=== PATIENT | male | born 1955 | race Caucasian/White ===

== ENCOUNTER 2017-09-01 06:40 | Inpatient (IN) | payer OTHER, MEDICARE ==
[~2017-09-01] VITALS: Ht 175.3 cm; Wt 105.7 kg
[2017-09-01] VITALS (9 sets, daily range): BP systolic 131–191; BP diastolic 69–94; PULSE 76–113; RESP 18–24; TEMP 97.6–98.6; O2SAT 92–95
[~2017-09-01 06:40] MED LIST: ATEN1TAB73 PO; FENO50TA PO; NEXI40CA PO; PERC10TA27 PO; ROSU5 PO; TRAZ50TA78 PO
[2017-09-01 07:03] LABS: BASOPHIL # 0.1 TH/MM3 (0-0.2); BASOPHIL % 0.3 % (0.0-2.0); EOSINOPHIL % 0.1 % (0.0-4.0); HEMATOCRIT 45.7 % (39.0-51.0); HEMOGLOBIN 15.4 GM/DL (13.0-17.0); LYMPH % 5.4 % (9.0-44.0); LYMPHOCYTE # 1.3 TH/MM3 (1.0-4.8); MEAN CELL VOLUME 92.8 FL (80.0-100.0); MEAN CORPUSCULAR HEMOGLOBIN 31.2 PG (27.0-34.0); MEAN CORPUSCULAR HGB CONC 33.6 % (32.0-36.0); MEAN PLATELET VOLUME 8.7 FL (7.0-11.0); MONO % 1.5 % (0.0-8.0); MONOCYTE # 0.4 TH/MM3 (0-0.9); NEUT % 92.7 % (16.0-70.0); PLATELET COUNT 266 TH/MM3 (150-450); RED BLOOD COUNT 4.93 MIL/MM3 (4.50-5.90); RED CELL DISTRIBUTION WIDTH 12.7 % (11.6-17.2); WHITE BLOOD COUNT 24.8 TH/MM3 (4.0-11.0)
[2017-09-01] MEDS ORDERED: ALPR.5 PO (07:10)
[2017-09-01] MEDS ORDERED: BUME1TAB PO (07:10)
[2017-09-01] MEDS ORDERED: METO1TAB9 PO (07:10)
[2017-09-01] MEDS ORDERED: PRIM50TA5 PO (07:10)
[2017-09-01] MEDS ORDERED: METO1TAB43 PO (07:10)
[2017-09-01] MEDS ORDERED: POTA10TA2 PO (07:10)
[2017-09-01] MEDS ORDERED: NEXI20CA PO (07:10)
[2017-09-01] MEDS ORDERED: OXYC1TAB36 PO (07:10)
[2017-09-01] MEDS ORDERED: FENO54TA PO (07:10)
[2017-09-01] MEDS ORDERED: SIMV40TA PO (07:10)
[2017-09-01] MEDS ORDERED: BENA40TA PO (07:10)
[2017-09-01] MEDS ORDERED: FORM20NE INH (07:10)
[2017-09-01 07:14] LABS: CHLORIDE 99 MEQ/L (98-107); SODIUM (NA) 133 MEQ/L (136-145)
[2017-09-01 07:17] LABS: ALBUMIN 4.6 GM/DL (3.4-5.0); BICARBONATE 21.3 MEQ/L (21.0-32.0); CALCIUM 9.8 MG/DL (8.5-10.1); GLUCOSE,RANDOM 186 MG/DL (74-106)
[2017-09-01 07:18] LABS: BLOOD UREA NITROGEN 39 MG/DL (7-18)
[2017-09-01 07:20] LABS: ALT (GPT) 34 U/L (12-78); AST (GOT) 19 U/L (15-37); GLOMERULAR FILTRATION RATE 36 ML/MIN (>89)
[2017-09-01 07:22] LABS: TOTAL BILIRUBIN ADULT 0.6 MG/DL (0.2-1.0); TOTAL PROTEIN 9.1 GM/DL (6.4-8.2)
--- NOTE | 2017-09-01 07:22 | EKG ---
Date Performed: 09/01/2017 Time Performed: 06:47:34 PTAGE: 62 years EKG: SINUS TACHYCARDIA MODERATE ST DEPRESSION ABNORMAL ECG INTERPRETATION BASED ON A DEFAULT AGE OF 40 YEARS NO PREVIOUS TRACING DOCTOR: Cory Hwang Interpretating Date/Time 09/01/2017 07:20:37
[2017-09-01 07:23] LABS: ALKALINE PHOSPHATASE 52 U/L (45-117)
[2017-09-01] MEDS ORDERED: PROCHLORPERAZINE INJ 10 MG/2 ML VIAL IV PUSH ONE (07:30)
[2017-09-01] MEDS ORDERED: diphenhydrAMINE HCL 50 MG/ML VIAL IV PUSH ONE (07:30)
[2017-09-01] MEDS ORDERED: MORPHINE SULFATE 4 MG/ML INJ IV ONE (07:30)
--- NOTE | 2017-09-01 07:43 | RADRPT ---
EXAM DATE: 09/01/2017 7:30 AM EDT AGE/SEX: 62 years / Male INDICATIONS: Diffuse abdominal pain. CLINICAL DATA: This is the patient's initial encounter. Patient reports that signs and symptoms have been present for 1 day and indicates a pain score of 10/10. MEDICAL/SURGICAL HISTORY: Aneurysm, abdominal. Hypertension. Umbilical hernia repair. Abdomin al aortic aneurysm repair. RADIATION DOSE: 23.06 CTDI (mGy) ; Patient body habitus COMPARISON: No prior exams available for comparison. TECHNIQUE: Multiple contiguous axial images were obtained through the abdomen. Images were obtained using multiple row detector helical technique. Using dose reduction techniques, radiation dose was ke pt as low as reasonably achievable to obtain optimal diagnostic quality images. FINDINGS: Minimal fissural thickening present on the right. Lungs bases are otherwise clear. Liver is free of focal defects. Gallbladder prominent Spleen and pancreas appear normal Adrenals are unremarkable Small atrophic right kidney Normal size left kidney Aortic endograft evident. Previous abdominal hernia surgery And no inflammatory changes or ascites in the abdomen The pelvis there are diverticuli sigmoid colon with minimal inflammatory changes in the right lower q uadrant could be early diverticulitis Excessive vascular calcic locations are noted in the iliac vessels Bladder and prostate are unremarkable , Quinones intact Review of bone windows reveals only degenerative changes. CONCLUSION: 1. Previous aortic repair with small right kidney 2. Minimal inflammatory changes associated with mild diverticular disease level iliac crests left th at could be early diverticulitis 3. No other etiology for diffuse abdominal pain is evident 4. There is no free air. Electronically signed by: Santiago Ingram MD 09/01/2017 7:42 AM EDT
[2017-09-01] MEDS ORDERED: MORPHINE SULFATE 2 MG/ML SYRINGE IV PUSH ONE (08:00)
--- NOTE | 2017-09-01 08:13 | PD ---
HPI . Abdominal pain Chief Complaint: Abdominal Pain Time Seen by Provider: 07:03 Travel History International Travel<30 days: No Contact w/Intl Traveler<30days: No Traveled to known affect area: No History of Present Illness HPI This patient presents with a chief complaint of abdominal pain. Onset was yesterday. The pain is located on the left side of his abdomen and is described as constant and sharp. Pain is rated 8/10. Pain is exacerbated by palpation. He has not noted any relieving factors. His pain is associated with a poor appetite and nausea but no vomiting or diarrhea. No urinary tract symptoms. No previous similar history. PFSH Past Medical History AAA: Yes Arthritis: Yes Anxiety: Yes High Cholesterol: Yes COPD: Yes Coronary Artery Disease: Yes Diminished Hearing: No GERD: Yes Hypertension: Yes Triglycerides - High: Yes Tetanus Vaccination: < 5 Years Influenza Vaccination: Yes Past Surgical History Abdominal Surgery: Yes (AAA REPAIR/STENT, HERNIA REPAIR) Social History Alcohol Use: No Tobacco Use: No Substance Use: No Allergies-Medications (Allergen,Severity, Reaction): Coded Allergies: penicillin G (Unverified Allergy, Severe, Rash, 09/01/17) Reported Meds & Prescriptions Reported Meds & Active Scripts Active Reported Perforomist Neb (Formoterol Fumarate) 20 Mcg/2 Ml Neb 1 Nebule INH BID Oxycodone-Acetaminophen 10-325 mg Tab 1 Tab PO Q4H PRN Xanax (Alprazolam) 0.5 Mg Tab 0.5 Mg PO Q4H PRN Primidone 50 Mg Tab 50 Mg PO BID Nexium (Esomeprazole DR) 20 Mg Capdr 20 Mg PO DAILY Simvastatin 40 Mg Tab 40 Mg PO HS Bumetanide 1 Mg Tab 1 Mg PO BID Benazepril (Benazepril HCl) 40 Mg Tab 40 Mg PO BID Fenofibrate 54 Mg Tab 54 Mg PO DAILY Potassium Chloride ER (Potassium Chloride) 10 Meq Tab 10 Meq PO BID Metoprolol Succinate ER 24 HR (Metoprolol Succinate) 50 Mg Tab 50 Mg PO DAILY Metoprolol Succinate ER 24 HR (Metoprolol Succinate) 100 Mg Tab 100 Mg PO DAILY Review of Systems Except as stated in HPI: all other systems reviewed are Neg Physical Exam Narrative GENERAL: Awake and alert and in no acute distress. SKIN: warm/dry. Normal color and turgor. HEAD: Normocephalic. Atraumatic. EYES: Pupils equal and round. Extraocular movements are intact. ENT: Mucous membranes pink and moist. NECK: Supple. Full range of motion without pain.. CARDIOVASCULAR: Regular rate and rhythm. Heart sounds are normal. RESPIRATORY: No accessory muscle use. Clear to auscultation. Breath sounds equal bilaterally. GASTROINTESTINAL: Abdomen is exquisitely tender to light palpation. Bowel sounds are present. MUSCULOSKELETAL: No obvious deformities. Normal muscle tone. NEUROLOGICAL: Awake and alert. No obvious cranial nerve deficits. Motor grossly within normal limits. Normal speech. PSYCHIATRIC: Appropriate mood and affect; insight and judgment normal. Data Data Last Documented VS Vital Signs Date Time Temp Pulse Resp B/P (MAP) Pulse Ox O2 Delivery O2 Flow Rate FiO2 09/01/17 09:40 93 18 135/69 (91) 93 Room Air 09/01/17 06:44 98.3 Orders Orders Electrocardiogram (09/01/17 ) Complete Blood Count With Diff (09/01/17 06:43) Comprehensive Metabolic Panel (09/01/17 06:43) Iv Access Insert/Monitor (09/01/17 06:43) Oxygen Administration (09/01/17 06:43) Oximetry (09/01/17 06:43) Lipase (09/01/17 06:43) Ct Abd/Pel W/O Iv Contrast (09/01/17 07:02) Diphenhydramine Inj (Benadryl Inj) (09/01/17 07:30) Prochlorperazine Inj (Compazine Inj) (09/01/17 07:30) Morphine Inj (Morphine Inj) (09/01/17 07:30) Morphine Inj (Morphine Inj) (09/01/17 08:00) Lactic Acid Sepsis Protocol (09/01/17 08:15) Sodium Chlor 0.9% 1000 Ml Inj (Ns 1000 M (09/01/17 09:45) Sodium Chlor 0.9% 1000 Ml Inj (Ns 1000 M (09/01/17 09:45) Labs Laboratory Tests Test 09/01/17 07:00 09/01/17 08:30 White Blood Count 24.8 TH/MM3 Red Blood Count 4.93 MIL/MM3 Hemoglobin 15.4 GM/DL Hematocrit 45.7 % Mean Corpuscular Volume 92.8 FL Mean Corpuscular Hemoglobin 31.2 PG Mean Corpuscular Hemoglobin Concent 33.6 % Red Cell Distribution Width 12.7 % Platelet Count 266 TH/MM3 Mean Platelet Volume 8.7 FL Neutrophils (%) (Auto) 92.7 % Lymphocytes (%) (Auto) 5.4 % Monocytes (%) (Auto) 1.5 % Eosinophils (%) (Auto) 0.1 % Basophils (%) (Auto) 0.3 % Neutrophils # (Auto) 23.0 TH/MM3 Lymphocytes # (Auto) 1.3 TH/MM3 Monocytes # (Auto) 0.4 TH/MM3 Eosinophils # (Auto) 0.0 TH/MM3 Basophils # (Auto) 0.1 TH/MM3 CBC Comment AUTO DIFF Differential Comment AUTO DIFF CONFIRMED Platelet Estimate NORMAL Platelet Morphology Comment NORMAL Blood Urea Nitrogen 39 MG/DL Creatinine 1.90 MG/DL Random Glucose 186 MG/DL Total Protein 9.1 GM/DL Albumin 4.6 GM/DL Calcium Level 9.8 MG/DL Alkaline Phosphatase 52 U/L Aspartate Amino Transf (AST/SGOT) 19 U/L Alanine Aminotransferase (ALT/SGPT) 34 U/L Total Bilirubin 0.6 MG/DL Sodium Level 133 MEQ/L Potassium Level 4.0 MEQ/L Chloride Level 99 MEQ/L Carbon Dioxide Level 21.3 MEQ/L Anion Gap 13 MEQ/L Estimat Glomerular Filtration Rate 36 ML/MIN Lipase 81 U/L Lactic Acid Level 3.3 mmol/L MDM Medical Decision Making Medical Screen Exam Complete: Yes Emergency Medical Condition: Yes Differential Diagnosis Differential diagnosis of abdominal pain includes but is not limited to gastritis, pancreatitis, hepatitis, gastroenteritis, constipation, urinary retention, peptic ulcer disease, diverticulitis or appendicitis Narrative Course This patient presents with a chief complaint of left-sided abdominal pain. He is very tender on abdominal exam. Last Impressions Abdomen/Pelvis CT 09/01/17 0702 Signed Impressions: CONCLUSION: 1. Previous aortic repair with small right kidney 2. Minimal inflammatory changes associated with mild diverticular disease leve l iliac crests left that could be early diverticulitis 3. No other etiology for diffuse abdominal pain is evident 4. There is no free air. The patient's pain has been treated with morphine. He will be given a dose of Zosyn for diverticulitis. CBC & BMP Diagram 09/01/17 07:00 Total Protein 9.1 H, Albumin 4.6, Calcium Level 9.8, Alkaline Phosphatase 52, Aspartate Amino Transf (AST/SGOT) 19, Alanine Aminotransferase (ALT/SGPT) 34, Total Bilirubin 0.6 LA 3.3. I have ordered 2 L of fluid. He will need to be admitted to the hospital for IV fluids and IV antibiotics. Sepsis Criteria SIRS Criteria (2 or more): Heart rate over 90, RR > 20 or PaCO2 < 32, WBC > 27901, < 4000 or > 10% bands Sepsis Criteria (SIRS+source): Infect source susp/known Severe Sepsis (+one): Lactate >2 Criteria Outcome: Meets SIRS criteria, Meets sepsis criteria Physician Communication Physician Communication Dr. Britt Diagnosis Primary Impression: Abdominal pain Qualified Codes: R10.32 - Left lower quadrant pain Additional Impressions: Diverticulitis large intestine Qualified Codes: K57.32 - Diverticulitis of large intestine without perforation or abscess without bleeding Severe sepsis Admitting Information Admitting Physician Requests: Admit Condition: Stable Charo Blackburn MD Sep 01, 2017 08:13
[2017-09-01 08:56] LABS: LACTIC ACID SEPSIS PROTOCOL 3.3 mmol/L (0.4-2.0)
[2017-09-01] MEDS ORDERED: SODIUM CHLOR 0.9% 1000 ML INJ 1,000 ML IV ONE ×2 (09:45)
[2017-09-01] MEDS ORDERED: NALOXONE HCL 0.4 MG/ML AMP IV PUSH PRN (10:00)
[2017-09-01] MEDS ORDERED: ACETAMINOPHEN 325 MG TAB PO PRN (10:00)
[2017-09-01] MEDS ORDERED: SENNOSIDES 8.6 MG TAB PO PRN (10:00)
[2017-09-01] MEDS ORDERED: SODIUM CHLORIDE 0.9% FLUSH 10 ML FLUSH IV FLUSH PRN (10:00)
[2017-09-01] MEDS ORDERED: MAGNESIUM HYDROXIDE SUSP 30 ML CUP PO PRN (10:00)
[2017-09-01] MEDS ORDERED: LACTULOSE SYRUP 20 GM/30 ML CUP PO PRN (10:00)
[2017-09-01] MEDS ORDERED: BISACODYL 10 MG SUPP RECTAL PRN (10:00)
[2017-09-01] MEDS: CIPROFLOXACIN 400 MG PREMIX 200 ML IV SCH (10:47)
[2017-09-01] MEDS: metroNIDAZOLE 500 MG INJ 100 ML IV SCH ×2 (12:00→21:03)
[2017-09-01] MEDS: SODIUM CHLOR 0.9% 1000 ML INJ 1,000 ML IV SCH ×2 (12:00→21:13)
[2017-09-01] MEDS: ACETAMINOPHEN/HYDROcodone 325 MG/5 MG TAB PO PRN ×2 (13:39→21:06)
[2017-09-01] MEDS: MORPHINE SULFATE 4 MG/ML INJ IV PUSH PRN ×2 (16:02→20:02)
--- NOTE | 2017-09-01 16:44 | HHI.HP ---
[facility] Kristal Barrera MD Admission Diagnosis diverticulitis Diagnoses: Chief Complaint: Abdominal pain Travel History International Travel<30 Days: No Contact w/Intl Traveler <30 Da: No Traveled to Known Affected Are: No Sepsis Criteria SIRS Criteria (2 or more): Heart rate over 90, WBC > 41090, < 4000 or > 10% bands Sepsis Criteria (SIRS+source): Infect source susp/known Criteria Outcome: Meets SIRS criteria, Meets sepsis criteria History of Present Illness Mr. Uriarte is a pleasant 62-year-old male with history of AAA repair, COPD, GERD , hypertension who presents to the emergency department on 09/01/2017 due to significant abdominal pain, diaphoresis that started yesterday morning. His pain initially was in the lower quadrants but now concentrated in the left lower quadrant. He rates his pain 8 out of 10. He reports poor appetite and nausea. No chest pain, shortness of breath, fever or chills. No changes in bowel or bladder habits. He denies any hematuria, hematochezia. Last colonoscopy was almost 2 years ago. Review of Systems Except as stated in HPI: all other systems reviewed are Neg Past Family Social History Past Medical History AAA, arthritis, anxiety, hyperlipidemia, COPD, CAD, GERD, hypertension. Past Surgical History AAA repair hernia repair Reported Medications Perforomist Neb (Formoterol Fumarate) 20 Mcg/2 Ml Neb 1 Nebule INH BID Oxycodone-Acetaminophen 10-325 mg Tab 1 Tab PO Q4H PRN Xanax (Alprazolam) 0.5 Mg Tab 0.5 Mg PO Q4H PRN Primidone 50 Mg Tab 50 Mg PO BID Nexium (Esomeprazole DR) 20 Mg Capdr 20 Mg PO DAILY Simvastatin 40 Mg Tab 40 Mg PO HS Bumetanide 1 Mg Tab 1 Mg PO BID Benazepril (Benazepril HCl) 40 Mg Tab 40 Mg PO BID Fenofibrate 54 Mg Tab 54 Mg PO DAILY Potassium Chloride ER (Potassium Chloride) 10 Meq Tab 10 Meq PO BID Metoprolol Succinate ER 24 HR (Metoprolol Succinate) 50 Mg Tab 50 Mg PO DAILY Metoprolol Succinate ER 24 HR (Metoprolol Succinate) 100 Mg Tab 100 Mg PO DAILY Allergies: Coded Allergies: penicillin G (Unverified Allergy, Severe, Rash, 09/01/17) Family History No family history of Alzheimer's or Parkinson's. Social History Denies using tobacco, alcohol, illicit drugs. Physical Exam Vital Signs Vital Signs Date Time Temp Pulse Resp B/P (MAP) Pulse Ox O2 Delivery O2 Flow Rate FiO2 09/01/17 15:21 98.2 104 20 131/78 (95) 93 09/01/17 12:05 97.6 113 20 161/77 (105) 94 09/01/17 11:52 09/01/17 11:33 98.1 106 18 150/76 (100) 92 Room Air 09/01/17 10:10 93 21 09/01/17 09:40 93 18 135/69 (91) 93 Room Air 09/01/17 08:16 97 18 157/73 (101) 93 Room Air 09/01/17 07:10 95 Room Air 09/01/17 07:10 95 Room Air 09/01/17 06:44 98.3 106 24 179/94 (122) 93 Physical Exam GENERAL: This is a well-nourished, well-developed patient, in no apparent distress. SKIN: No rashes, ecchymoses or lesions. Warm and dry. HEAD: Atraumatic. Normocephalic. No temporal or scalp tenderness. EYES: Pupils equal round and reactive. No injection or drainage. ENT: Nose without bleeding, purulent drainage or septal hematoma. Airway patent. NECK: Trachea midline. No lymphadenopathy. Supple, nontender, no meningeal signs. CARDIOVASCULAR: Regular rate and rhythm without murmurs, gallops, or rubs. No JVD. RESPIRATORY: Clear to auscultation. Breath sounds equal bilaterally. No wheezes , rales, or rhonchi. GASTROINTESTINAL: Abdomen is somewhat firm and distended, exquisitely tender to palpation especially on the left lower quadrant. MUSCULOSKELETAL: Extremities without clubbing, cyanosis, or edema. NEUROLOGICAL: Awake and alert. Cranial nerves II through XII intact. No focal neurological deficits. Normal speech. Laboratory Laboratory Tests Test 09/01/17 07:00 09/01/17 08:30 09/01/17 11:40 White Blood Count 24.8 Red Blood Count 4.93 Hemoglobin 15.4 Hematocrit 45.7 Mean Corpuscular Volume 92.8 Mean Corpuscular Hemoglobin 31.2 Mean Corpuscular Hemoglobin Concent 33.6 Red Cell Distribution Width 12.7 Platelet Count 266 Mean Platelet Volume 8.7 Neutrophils (%) (Auto) 92.7 Lymphocytes (%) (Auto) 5.4 Monocytes (%) (Auto) 1.5 Eosinophils (%) (Auto) 0.1 Basophils (%) (Auto) 0.3 Neutrophils # (Auto) 23.0 Lymphocytes # (Auto) 1.3 Monocytes # (Auto) 0.4 Eosinophils # (Auto) 0.0 Basophils # (Auto) 0.1 CBC Comment AUTO DIFF Differential Comment AUTO DIFF CONFIRMED Platelet Estimate NORMAL Platelet Morphology Comment NORMAL Blood Urea Nitrogen 39 Creatinine 1.90 Random Glucose 186 Total Protein 9.1 Albumin 4.6 Calcium Level 9.8 Alkaline Phosphatase 52 Aspartate Amino Transf (AST/SGOT) 19 Alanine Aminotransferase (ALT/SGPT) 34 Total Bilirubin 0.6 Sodium Level 133 Potassium Level 4.0 Chloride Level 99 Carbon Dioxide Level 21.3 Anion Gap 13 Estimat Glomerular Filtration Rate 36 Lipase 81 Lactic Acid Level 3.3 2.8 Result Diagram: 09/01/17 0709/01/17699 Imaging Last Impressions Abdomen/Pelvis CT 09/01/17701 Signed Impressions: CONCLUSION: 1. Previous aortic repair with small right kidney 2. Minimal inflammatory changes associated with mild diverticular disease leve l iliac crests left that could be early diverticulitis 3. No other etiology for diffuse abdominal pain is evident 4. There is no free air. Caprini VTE Risk Assessment Caprini VTE Risk Assessment: Mod/High Risk (score >= 2) Caprini Risk Assessment Model Point Value = 1 Point Value = 2 Point Value = 3 Point Value = 5 Age 41-60 Minor surgery BMI > 25 kg/m2 Swollen legs Varicose veins or History of unexplained or recurrent spontaneous Oral contraceptives or hormone replacement Sepsis (< 1 month) Serious lung disease, including pneumonia (< 1 month) Abnormal pulmonary function Acute myocardial infarction Congestive heart failure (< 1 month) History of inflammatory bowel disease Medical patient at bed rest Age 61-74 Arthroscopic surgery Major open surgery (> 45 min) Laparoscopic surgery (> 45 min) Malignancy Confined to bed (> 72 hours) Immobilizing plaster cast Central venous access Age >= 75 History of VTE Family history of VTE Factor V Leiden Prothrombin [id number] Lupus anticoagulant Anticardiolipin antibodies Elevated serum homocysteine Heparin-induced thrombocytopenia Other congenital or acquired thrombophilia Stroke (< 1 month) Elective arthroplasty Hip, pelvis, or leg fracture Acute spinal cord injury (< 1 month) Prophylaxis Regimen Total Risk Factor Score Risk Level Prophylaxis Regimen 0-1 Low Early ambulation 2 Moderate Order ONE of the following: *Sequential Compression Device (SCD) *Heparin 5000 units SQ BID 3-4 Higher Order ONE of the following medications: *Heparin 5000 units SQ TID *Enoxaparin/Lovenox 40 mg SQ daily (WT < 150 kg, CrCl > 30 mL/min) *Enoxaparin/Lovenox 30 mg SQ daily (WT < 150 kg, CrCl > 10-29 mL/min) *Enoxaparin/Lovenox 30 mg SQ BID (WT < 150 kg, CrCl > 30 mL/min) AND/OR *Sequential Compression Device (SCD) 5 or more Highest Order ONE of the following medications: *Heparin 5000 units SQ TID (Preferred with Epidurals) *Enoxaparin/Lovenox 40 mg SQ daily (WT < 150 kg, CrCl > 30 mL/min) *Enoxaparin/Lovenox 30 mg SQ daily (WT < 150 kg, CrCl > 10-29 mL/min) *Enoxaparin/Lovenox 30 mg SQ BID (WT < 150 kg, CrCl > 30 mL/min) AND *Sequential Compression Device (SCD) Assessment and Plan Problem List: (1) Sepsis ICD Code: A41.9 - Sepsis, unspecified organism Status: Acute (2) Diverticulitis large intestine ICD Code: K57.32 - Diverticulitis of large intestine without perforation or abscess without bleeding Status: Acute Assessment and Plan Mr. Uriarte is a pleasant 62-year-old male with a history of AAA repair, hypertension, hyperlipidemia who presents to the emergency department on 2017 due to lower abdominal pain and diaphoresis that started a day before this admission. Acute diverticulitis Sepsis(leukocytosis, heart rate over 100, suspected infection diverticulitis) -Clear liquid diet. -Ciprofloxacin 400 mg every 12 hours and metronidazole IV 500 mg every 8 hours. -Pain management with acetaminophen, [place], morphine IV as needed. COPD -DuoNeb as needed. Probable acute kidney injury -Creatinine 1.90. We do not know his baseline creatinine. We will monitor. -Continue normal saline at 100 cc/h. Hypertension Tachycardia Hyperlipidemia Anxiety - Continue Metoprolol succinate 100 mg daily. Hold off WEI inhibitor and diuretics for now. - Continue Xanax 0.5mg Q4hrs PRN (home dose). Full code. Heparin SQ. Physician Certification 2 Midnight Certification Type: Admission for Inpatient Services Order for Inpatient Services The services are ordered in accordance with Medicare regulations or non- Medicare payer requirements, as applicable. In the case of services not specified as inpatient-only, they are appropriately provided as inpatient services in accordance with the 2-midnight benchmark. Estimated LOS (days): 2 days is the estimated time the patient will need to remain in the hospital, assuming treatment plan goals are met and no additional complications. Post-Hospital Plan: Home Problem Qualifiers (1) Sepsis: Qualified Codes: A41.9 - Sepsis, unspecified organism (2) Diverticulitis large intestine: Qualified Codes: K57.32 - Diverticulitis of large intestine without perforation or abscess without bleeding Enedina Britt DO Sep 01, 2017 4:44 pm
[2017-09-01] MEDS ORDERED: RESP: ALBUTEROL 2.5 MG/IPRATROPIUM 0.5 MG NEB (PRN) NEB (18:15)
[2017-09-01] MEDS ORDERED: ALPRAZolam 0.5 MG TAB PO PRN (18:15)
[2017-09-01] MEDS: SODIUM CHLORIDE 0.9% FLUSH 10 ML FLUSH IV FLUSH SCH (21:00)
[2017-09-01] MEDS: PRAVASTATIN SOD 40 MG TAB PO SCH (21:05)
[2017-09-01] MEDS: PRIMIDONE 50 MG TAB PO SCH (21:05)
[2017-09-01] MEDS: HEPARIN SODIUM - SQ 10,000 UNITS/ML VIAL SQ SCH (21:12)
[2017-09-02] VITALS (9 sets, daily range): BP systolic 132–209; BP diastolic 75–98; PULSE 85–101; RESP 16–22; TEMP 97.1–98.4; O2SAT 93–99
[2017-09-02] MEDS: MORPHINE SULFATE 4 MG/ML INJ IV PUSH PRN ×2 (00:12→03:27)
[2017-09-02] MEDS: CIPROFLOXACIN 400 MG PREMIX 200 ML IV SCH ×2 (00:14→09:57)
[2017-09-02] MEDS: metroNIDAZOLE 500 MG INJ 100 ML IV SCH ×3 (03:28→20:32)
[2017-09-02] MEDS ORDERED: cloNIDine HCL 0.1 MG TAB PO ONE (04:15)
[2017-09-02] MEDS: ACETAMINOPHEN/HYDROcodone 325 MG/5 MG TAB PO PRN ×2 (04:20→06:25)
[2017-09-02 06:27] LABS: AUTOMATED NEUTROPHIL # 11.7 TH/MM3 (1.8-7.7); BASOPHIL # 0.6 TH/MM3 (0-0.2); BASOPHIL % 4.2 % (0.0-2.0); EOSINOPHIL % 0.2 % (0.0-4.0); HEMATOCRIT 37.2 % (39.0-51.0); HEMOGLOBIN 12.6 GM/DL (13.0-17.0); LYMPH % 11.2 % (9.0-44.0); LYMPHOCYTE # 1.7 TH/MM3 (1.0-4.8); MEAN CELL VOLUME 91.4 FL (80.0-100.0); MEAN CORPUSCULAR HGB CONC 33.9 % (32.0-36.0); MEAN PLATELET VOLUME 8.4 FL (7.0-11.0); MONO % 5.6 % (0.0-8.0); MONOCYTE # 0.8 TH/MM3 (0-0.9); NEUT % 78.8 % (16.0-70.0); PLATELET COUNT 194 TH/MM3 (150-450); RED BLOOD COUNT 4.07 MIL/MM3 (4.50-5.90); RED CELL DISTRIBUTION WIDTH 12.6 % (11.6-17.2); WHITE BLOOD COUNT 14.8 TH/MM3 (4.0-11.0)
[2017-09-02 06:48] LABS: BICARBONATE 20.5 MEQ/L (21.0-32.0); CALCIUM 8.5 MG/DL (8.5-10.1); CREATININE 1.2 MG/DL (0.60-1.30)
[2017-09-02] MEDS ORDERED: oxyCODONE/ACETAMINOPHEN 10 MG/325 MG TAB PO PRN (08:15)
--- NOTE | 2017-09-02 08:24 | HHI.PR ---
Subjective Remarks Follow-up for sepsis, diverticulitis. Patient is complaining of persistent abdominal distention and pain. His pain has not improved much. Denies any fever or chills. Has not had any bowel movement. Objective Vitals Vital Signs Date Time Temp Pulse Resp B/P (MAP) Pulse Ox O2 Delivery O2 Flow Rate FiO2 09/02/17 05:20 19 09/02/17 04:00 96 09/02/17 04:00 97.6 92 20 189/98 (128) 95 09/02/17 03:48 97.6 92 20 189/98 (128) 95 09/02/17 03:32 19 09/02/17 00:00 93 09/02/17 00:00 97.1 95 20 188/92 (124) 99 09/01/17 20:00 98.6 76 20 191/88 (122) 93 09/01/17 15:21 98.2 104 20 131/78 (95) 93 09/01/17 12:05 97.6 113 20 161/77 (105) 94 09/01/17 11:52 09/01/17 11:33 98.1 106 18 150/76 (100) 92 Room Air 09/01/17 10:10 93 21 09/01/17 09:40 93 18 135/69 (91) 93 Room Air I/O 09/01/17 09/01/17 09/01/17 09/02/17 09/02/17 09/02/17 07:00 15:00 23:00 07:00 15:00 23:00 Intake Total 2200 ml 420 ml Output Total 800 ml 650 ml Balance 2200 ml -380 ml -650 ml Intake Oral 420 ml IV Total 2200 ml Output Urine Total 800 ml 650 ml # Bowel Movements 0 0 Result Diagram: 09/02/17 0600 09/02/17 0600 Imaging Last Impressions Abdomen/Pelvis CT 09/01/17 0702 Signed Impressions: CONCLUSION: 1. Previous aortic repair with small right kidney 2. Minimal inflammatory changes associated with mild diverticular disease leve l iliac crests left that could be early diverticulitis 3. No other etiology for diffuse abdominal pain is evident 4. There is no free air. Objective Remarks GENERAL: Alert, oriented 3, NAD. Appears to be in mild discomfort due to pain. SKIN: Warm and dry. HEAD: Normocephalic. EYES: No scleral icterus. No injection or drainage. NECK: Supple, trachea midline. No JVD or lymphadenopathy. CARDIOVASCULAR: Regular rate and rhythm without murmurs, gallops, or rubs. RESPIRATORY: Breath sounds equal bilaterally. No accessory muscle use. GASTROINTESTINAL: Abdomen somewhat firm, exquisitely tender to palpation. MUSCULOSKELETAL: No cyanosis, or edema. BACK: Nontender without obvious deformity. No CVA tenderness. Procedures None A/P Problem List: (1) Sepsis ICD Code: A41.9 - Sepsis, unspecified organism Status: Acute (2) Diverticulitis large intestine ICD Code: K57.32 - Diverticulitis of large intestine without perforation or abscess without bleeding Status: Acute Assessment and Plan Mr. Uriarte is a pleasant 62-year-old male with a history of AAA repair, hypertension, hyperlipidemia who presents to the emergency department on 2017 due to lower abdominal pain and diaphoresis that started a day before this admission. Acute diverticulitis Sepsis(leukocytosis, heart rate over 100, suspected infection diverticulitis) -Currently afebrile, leukocytosis improved 24.8 --> 14.8. -Clear liquid diet. -Ciprofloxacin 400 mg every 12 hours and metronidazole IV 500 mg every 8 hours. -Pain management with acetaminophen. Change pain medication to Percocet and Dilaudid as needed. -Due to persistent symptoms (pain, distention), will obtain KUB this morning as well as a colorectal surgery consultation. COPD -DuoNeb as needed. Probable acute kidney injury -Creatinine 1.90 --> 1.20 . We do not know his baseline creatinine. We will monitor. -Continue normal saline at 100 cc/h. Hypertension Tachycardia Hyperlipidemia Anxiety - BP was high this AM likely due to pain. - Patient takes WEI inhibitor. Will start patient on captopril 25 mg twice daily. - Continue Metoprolol succinate 100 mg daily. - Continue Xanax 0.5mg Q4hrs PRN (home dose). Full code. Heparin SQ. Problem Qualifiers (1) Sepsis: Qualified Codes: A41.9 - Sepsis, unspecified organism (2) Diverticulitis large intestine: Qualified Codes: K57.32 - Diverticulitis of large intestine without perforation or abscess without bleeding Enedina Britt DO Sep 02, 2017 08:24
[2017-09-02] MEDS ORDERED: HYDROmorphone HCL PF 2 MG/ML VIAL IV PUSH ONE (08:30)
[2017-09-02] MEDS: PANTOPRAZOLE SOD 20 MG DELAYED RELEASE TAB PO SCH (08:36)
[2017-09-02] MEDS: HEPARIN SODIUM - SQ 10,000 UNITS/ML VIAL SQ SCH ×2 (08:36→20:31)
[2017-09-02] MEDS: METOPROLOL SUCCINATE 50 MG EXTENDED RELEASE TAB PO SCH (08:36)
[2017-09-02] MEDS: PRIMIDONE 50 MG TAB PO SCH ×2 (08:36→20:31)
[2017-09-02] MEDS: SODIUM CHLORIDE 0.9% FLUSH 10 ML FLUSH IV FLUSH SCH ×2 (08:39→20:32)
[2017-09-02] MEDS: SODIUM CHLOR 0.9% 1000 ML INJ 1,000 ML IV SCH ×2 (08:39→16:31)
[2017-09-02] MEDS: CAPTOPRIL 25 MG TAB PO SCH ×2 (09:58→20:31)
--- NOTE | 2017-09-02 10:08 | RADRPT ---
EXAM DATE: 09/02/2017 9:45 AM EDT AGE/SEX: 62 years / Male INDICATIONS: Severe abdominal pain. Diverticulitis. CLINICAL DATA: This is the patient's initial encounter. Patient reports that signs and symptoms have been present for 2 days and indicates a pain score of 10/10. MEDICAL/SURGICAL HISTORY: Aneurysm, abdominal. Hypercholesterolemia. Chronic obstructive pulm onary disease. Hypertension. Sleep Apnea. Crushed disc. Abdominal aortic aneurysm repair. Hernia re pair. Bilateral ankle repair. Bilateral hand repair. COMPARISON: [facility], CT ABDOMEN & PELVIS W/O CONTRAST, 09/01/2017. . FINDINGS: 3 supine frontal views of the abdomen demonstrate air distended transverse colon similar to yesterda y's CT. Overall, there is a nonobstructive bowel gas pattern. No organomegaly or concerning calcifica tions are identified. No abnormal mass effect is appreciated. Endoluminal stent graft is present rela lenore to prior abdominal aortic aneurysm repair. There is severe atherosclerotic disease of the externa l iliac vessels and common femoral arteries. Clips overlie the pelvis related to prior hernia repair with mesh. Lung bases and bones demonstrate no acute abnormality. CONCLUSION: 1. No acute abdominal abnormality is identified. There is stable distention of the transverse colon. 2. Severe atherosclerotic disease. Electronically signed by: Santiago Lugo MD 09/02/2017 10:07 AM EDT
[2017-09-02] MEDS: HYDROmorphone HCL PF 2 MG/ML VIAL IV PUSH PRN ×2 (13:56→20:33)
--- NOTE | 2017-09-02 17:26 | MB ---
cc: aSntiago Moeller MDShelbigloria GONSALEZ DATE: 09/02/2017 CHIEF COMPLAINT: Abdominal pain. HISTORY OF PRESENT ILLNESS: This patient is known to me. About a year ago, I did a screening colonoscopy on him. He was found to have sigmoid diverticulosis. No evidence of diverticulitis. No polyps or other mucosal lesions were seen. He said that about a week ago, he developed left-sided flank abdominal pain, thought it was from working in the garden. It stayed the same for a while until about 2 days ago, when it worsened markedly and then he came to the emergency department. He was seen to the emergency department with severe pain in the left lower quadrant and suprapubic region. He underwent a CT scan of the abdomen and pelvis on 09/01/2017 at 7:[address] scan was basically unremarkable except for minimal inflammatory changes associated with diverticulitis. The patient has known vascular disease with an endoluminal aortic graft. The patient has been complaining of severe pain really unrelieved by morphine or the Dilaudid. The oral oxycodone has helped him the most. The patient has been on a clear liquid diet. He was placed on Cipro 400 mg IV twice a day and Flagyl 500 mg t.i.d. He says that he has not had any bowel motions since coming in to the hospital, but still feels somewhat bloated with gas. He had plain abdominal x-ray today showing some transverse colon dilatation with air. Again, the diverticulitis was fairly minimal, but there was a definite stranding. Of note, on the CT scan, it appears as if the sigmoid colon may be touching the anterior abdominal wall, causing his severe pain. PAST MEDICAL HISTORY, FAMILY HISTORY, SOCIAL HISTORY, REVIEW OF SYSTEMS: As above. PHYSICAL EXAMINATION: GENERAL: Well-developed, obese male in acute distress with lower abdominal pain. SKIN: Warm and dry. HEENT: Extraocular muscles intact. NECK: Supple. ABDOMEN: Obese, soft. He has got mild diffuse tenderness and very tender in the left lower quadrant and suprapubic region. EXTREMITIES: Range of motion within normal limits. NEUROLOGIC: Grossly normal. IMPRESSION: Acute acute sigmoid diverticulitis with pain. PLAN: I would continue him on antibiotics and pain control. The only reason to keep him in the hospital is to control his pain at this point since he is not having any nausea or vomiting. He says that his pain control today with the oral oxycodone is certainly better than it was yesterday on IV pain medicine. Of note, I have done a colonoscopy on him just a year ago. He does not need a colonoscopy even after he is over this since the interval is so short. I would recommend placing him on oral antibiotics. I have taken the liberty of starting him on a full liquid diet and discontinued his telemetry since he is not having any cardiac issues and the telemetry unit is lying on his abdomen, causing him more in the way of pain. I will follow along with you, but I anticipate him going home from the hospital on oral pain medicine, specifically the oxycodone and the oral antibiotics consisting of Cipro and Flagyl. MD DELORES Awan/JUDI , 05:06 PM , 05:24 PM
[2017-09-02] MEDS: oxyCODONE/ACETAMINOPHEN 10 MG/325 MG TAB PO PRN ×2 (18:47→23:39)
[2017-09-02] MEDS: PRAVASTATIN SOD 40 MG TAB PO SCH (20:31)
[2017-09-03] VITALS: BP 192/91; PULSE 106; RESP 18; TEMP 96.2; O2SAT 94
[2017-09-03] MEDS: CIPROFLOXACIN 400 MG PREMIX 200 ML IV SCH ×2 (00:03→10:40)
[2017-09-03] MEDS: HYDROmorphone HCL PF 2 MG/ML VIAL IV PUSH PRN (02:58)
[2017-09-03] MEDS: metroNIDAZOLE 500 MG INJ 100 ML IV SCH ×2 (03:17→12:01)
[2017-09-03] MEDS: SODIUM CHLOR 0.9% 1000 ML INJ 1,000 ML IV SCH ×2 (03:17→12:34)
--- NOTE | 2017-09-03 07:26 | HHI.PR ---
Subjective Remarks Pt feels better this AM. Resting in bed. Pain more tolerable and localized in LLQ. Tolerating liquids. Objective Vital Signs Date Time Temp Pulse Resp B/P (MAP) Pulse Ox O2 Delivery O2 Flow Rate FiO2 09/03/17 00:00 96.2 106 18 192/91 (124) 94 09/02/17 20:55 94 21 09/02/17 20:00 98.2 92 18 140/87 (104) 93 09/02/17 18:23 98.4 101 16 183/87 (119) 94 09/02/17 12:00 97.9 87 19 132/75 (94) 93 09/02/17 08:36 85 09/02/17 08:00 98.0 90 22 209/94 (132) 95 I/O 09/02/17 09/02/17 09/02/17 09/03/17 09/03/17 09/03/17 07:00 15:00 23:00 07:00 15:00 23:00 Intake Total 400 ml 1224 ml 120 ml Output Total 650 ml 300 ml 400 ml Balance -650 ml 100 ml 1224 ml -280 ml Intake Oral 120 ml IV Total 400 ml 1224 ml Output Urine Total 650 ml 300 ml 400 ml # Voids 2 # Bowel Movements 0 Result Diagram: 09/02/17 0600 09/02/17 0600 Objective Remarks VS-S Abdomen: Obese,soft,tender in LLQ I&Os-OK Assessment and Plan Assessment and Plan Improving Plan: D/C anytime OK with me. Recommend D/C on Cipro/Flagyl. Recommend low residue diet for 4 weeks. Recommend Miralax while taking Oxycodone. Pt has his own Oxycodone at home for his back pain PRN Recommend 40-50 lb weight reduction. F/U with me 1 week. Santiago Moeller MD Sep 03, 2017 07:26
[2017-09-03 08:00] VITALS: BP 197/95; PULSE 105; RESP 20; TEMP 98.5; O2SAT 93
[2017-09-03] MEDS: oxyCODONE/ACETAMINOPHEN 10 MG/325 MG TAB PO PRN ×2 (08:53→15:52)
[2017-09-03] MEDS: PRIMIDONE 50 MG TAB PO SCH (08:54)
[2017-09-03] MEDS: METOPROLOL SUCCINATE 50 MG EXTENDED RELEASE TAB PO SCH (08:54)
[2017-09-03] MEDS: PANTOPRAZOLE SOD 20 MG DELAYED RELEASE TAB PO SCH (08:54)
[2017-09-03] MEDS: CAPTOPRIL 25 MG TAB PO SCH (08:54)
[2017-09-03] MEDS: HEPARIN SODIUM - SQ 10,000 UNITS/ML VIAL SQ SCH (08:56)
[2017-09-03] MEDS: SODIUM CHLORIDE 0.9% FLUSH 10 ML FLUSH IV FLUSH SCH (08:57)
[2017-09-03 10:56] VITALS: BP 209/110
[2017-09-03] MEDS ORDERED: cloNIDine HCL 0.2 MG TAB PO ONE (11:15)
[2017-09-03] MEDS ORDERED: cloNIDine HCL 0.1 MG TAB PO PRN (11:15)
[2017-09-03 12:00] VITALS: BP 195/92; PULSE 86; RESP 19; TEMP 97.4; O2SAT 96
[2017-09-03 12:56] VITALS: BP 146/78
[2017-09-03] MEDS ORDERED: CIPR-9 PO (13:00)
[2017-09-03] MEDS ORDERED: OXYC1TAB36 PO (13:00)
[2017-09-03] MEDS ORDERED: METR-1 PO (13:00)
[2017-09-03] MEDS ORDERED: CARV25TA PO (13:01)
[2017-09-03] MEDS ORDERED: MIRA3350 PO (13:03)
--- NOTE | 2017-09-03 17:33 | HHI.DS ---
Discharge Summary Admission Date Sep 01, 2017 at 10:01 Discharge Date: Sep 03, 2017 Admitting Diagnosis diverticulitis (1) Sepsis ICD Code: A41.9 - Sepsis, unspecified organism Diagnosis: Principal Status: Acute (2) Diverticulitis large intestine ICD Code: K57.32 - Diverticulitis of large intestine without perforation or abscess without bleeding Diagnosis: Principal Status: Acute Procedures None Brief History - From Admission Mr. Uriarte is a pleasant 62-year-old male with history of AAA repair, COPD, GERD , hypertension who presents to the emergency department on 09/01/2017 due to significant abdominal pain, diaphoresis that started yesterday morning. His pain initially was in the lower quadrants but now concentrated in the left lower quadrant. He rates his pain 8 out of 10. He reports poor appetite and nausea. No chest pain, shortness of breath, fever or chills. No changes in bowel or bladder habits. He denies any hematuria, hematochezia. Last colonoscopy was almost 2 years ago. CBC/BMP: 09/02/17 0600 09/02/17 0600 Significant Findings Laboratory Tests Test 09/01/17 07:00 09/01/17 08:30 09/01/17 11:40 09/02/17 06:00 White Blood Count 24.8 TH/MM3 (4.0-11.0) 14.8 TH/MM3 (4.0-11.0) Neutrophils (%) (Auto) 92.7 % (16.0-70.0) 78.8 % (16.0-70.0) Lymphocytes (%) (Auto) 5.4 % (9.0-44.0) Neutrophils # (Auto) 23.0 TH/MM3 (1.8-7.7) 11.7 TH/MM3 (1.8-7.7) Blood Urea Nitrogen 39 MG/DL (7-18) 19 MG/DL (7-18) Creatinine 1.90 MG/DL (0.60-1.30) Random Glucose 186 MG/DL (74-106) 136 MG/DL (74-106) Total Protein 9.1 GM/DL (6.4-8.2) Sodium Level 133 MEQ/L (136-145) Estimat Glomerular Filtration Rate 36 ML/MIN (>89) 61 ML/MIN (>89) Lactic Acid Level 3.3 mmol/L (0.4-2.0) 2.8 mmol/L (0.4-2.0) Red Blood Count 4.07 MIL/MM3 (4.50-5.90) Hemoglobin 12.6 GM/DL (13.0-17.0) Hematocrit 37.2 % (39.0-51.0) Basophils (%) (Auto) 4.2 % (0.0-2.0) Basophils # (Auto) 0.6 TH/MM3 (0-0.2) Carbon Dioxide Level 20.5 MEQ/L (21.0-32.0) Test 09/02/17 07:50 Imaging Last Impressions Abdomen X-Ray 09/02/17 0000 Signed Impressions: CONCLUSION: 1. No acute abdominal abnormality is identified. There is stable distention of the transverse colon. 2. Severe atherosclerotic disease. Abdomen/Pelvis CT 09/01/17 0702 Signed Impressions: CONCLUSION: 1. Previous aortic repair with small right kidney 2. Minimal inflammatory changes associated with mild diverticular disease leve l iliac crests left that could be early diverticulitis 3. No other etiology for diffuse abdominal pain is evident 4. There is no free air. PE at Discharge GENERAL: Alert, oriented 3, NAD. Appears to be in mild discomfort due to pain. SKIN: Warm and dry. HEAD: Normocephalic. EYES: No scleral icterus. No injection or drainage. NECK: Supple, trachea midline. No JVD or lymphadenopathy. CARDIOVASCULAR: Regular rate and rhythm without murmurs, gallops, or rubs. RESPIRATORY: Breath sounds equal bilaterally. No accessory muscle use. GASTROINTESTINAL: Abdomen somewhat firm, exquisitely tender to palpation. MUSCULOSKELETAL: No cyanosis, or edema. BACK: Nontender without obvious deformity. No CVA tenderness. Pt update on day of discharge Patient is currently doing well. No acute concerns. Colorectal surgeon recommended discharge with oral antibiotics and pain medication. Hospital Course Mr. Uriarte is a pleasant 62-year-old male with a history of AAA repair, hypertension, hyperlipidemia who presents to the emergency department on 2017 due to lower abdominal pain and diaphoresis that started a day before this admission. Acute diverticulitis Sepsis(leukocytosis, heart rate over 100, suspected infection diverticulitis) -Currently afebrile, leukocytosis improved 24.8 --> 14.8. -Diet advanced. Patient was evaluated by colorectal surgery who recommended discharging patient with oral antibiotics and pain medications. Patient to follow-up with colorectal surgery in 1 week. COPD -DuoNeb as needed. Probable acute kidney injury -Creatinine 1.90 --> 1.20 . -Received normal saline at 100 cc/h. Hypertension Tachycardia Hyperlipidemia Anxiety - BP was high this AM likely due to pain. -Patient can continue WEI inhibitor at home. We switched his metoprolol succinate to carvedilol - Continue Xanax 0.5mg Q4hrs PRN (home dose). Full code. Heparin SQ. Pt Condition on Discharge: Good Discharge Disposition: Discharge Home Discharge Time: <= 30 minutes Discharge Instructions DIET: Follow Instructions for: As Tolerated, No Restrictions, Low Residue Diet Activities you can perform: Regular-No Restrictions Follow up Referrals: Colorectal Surgery - 1 Week with Santiago Moeller MD PCP Follow-up - 1 Week PCP Follow-up Surgical New Medications: Carvedilol (Carvedilol) 25 Mg Tab 25 MG PO BID, #60 TAB 3 Refills Ciprofloxacin (Cipro) 500 Mg Tab 500 MG PO BID for Infection, #28 TAB 0 Refills Metronidazole (Flagyl) 500 Mg Tab 500 MG PO TID for Infection, #42 TAB 0 Refills Polyethylene Glycol 3350 Powder (Miralax Powder) 17 Gm Powd 17 GM PO DAILY for Constipation, #1 CAN 0 Refills Mix and dissolve one measuring cap-ful (17 grams) in water or juice. Changed Medications: Oxycodone-Acetaminophen (Oxycodone-Acetaminophen) 10-325 mg Tab 1 TAB PO Q4H PRN for PAIN, #20 TAB 0 Refills (Medication details modified) Diverticulits. Continued Medications: Alprazolam (Xanax) 0.5 Mg Tab 0.5 MG PO Q4H PRN for ANXIETY, TAB 0 Refills Benazepril (Benazepril) 40 Mg Tab 40 MG PO BID for Blood Pressure Management, #30 TAB 0 Refills Bumetanide (Bumetanide) 1 Mg Tab 1 MG PO BID, #60 TAB [address] (Nexium) 20 Mg Capdr 20 MG PO DAILY, CAP 0 Refills Fenofibrate (Fenofibrate) 54 Mg Tab 54 MG PO DAILY, #30 TAB 0 Refills Formoterol Neb (Perforomist Neb) 20 Mcg/2 Ml Neb 1 NEBULE INH BID for COPD, #60 NEBULE 0 Refills Potassium Chloride ER (Potassium Chloride ER) 10 Meq Tab 10 MEQ PO BID for Electrolyte Replacement, #60 TAB 0 Refills Primidone (Primidone) 50 Mg Tab 50 MG PO BID for Control Seizures, #60 TAB 0 Refills Simvastatin (Simvastatin) 40 Mg Tab 40 MG PO HS for Cholesterol Management, #30 TAB 0 Refills Discontinued Medications: Metoprolol Succinate ER 24 HR (Metoprolol Succinate ER 24 HR) 100 Mg Tab 100 MG PO DAILY, #30 TAB 0 Refills Metoprolol Succinate ER 24 HR (Metoprolol Succinate ER 24 HR) 50 Mg Tab 50 MG PO DAILY, #30 TAB 0 Refills Enedina Britt DO Sep 03, 2017 17:33
== END 2017-09-03 17:30 | disposition home or self-care (01) | DRG 872 ==
LOC: PHED 06:40 → PHEDA 10:01 → PH3A 11:50
PROVIDERS: ADMIT Hospitalist; ATTEND Hospitalist
DX: A41.9 Sepsis, unspecified organism (principal); N17.9 Acute kidney failure, unspecified; K57.32 Diverticulitis of large intestine without perforation or abscess without bleeding; I10 Essential (primary) hypertension; J44.9 Chronic obstructive pulmonary disease, unspecified; E78.5 Hyperlipidemia, unspecified; I25.10 Atherosclerotic heart disease of native coronary artery without angina pectoris; K21.9 Gastro-esophageal reflux disease without esophagitis; M19.90 Unspecified osteoarthritis, unspecified site; F41.9 Anxiety disorder, unspecified; Z86.79 Personal history of other diseases of the circulatory system; Z88.0 Allergy status to penicillin
CPT/HCPCS: 74018; 74176; 80048; 80053; 83605; 83690; 85025; 93005; 96374; 96375; J0744; J0780; J1170; J1200; J1644; J2270; J7030